=== PATIENT | female | born 1955 | race Caucasian/White ===

== ENCOUNTER 2023-08-02 09:50 | Emergency (ER) | payer MEDICARE, BC ==
[~2023-08-02] VITALS: Ht 160 cm; Wt 64.2 kg
[2023-08-02 11:04] LABS: Basophils # (auto) 0.1 10 ^3/uL (0-0.2); Basophils % (auto) 0.3 % (0.0-2.0); Eosinophils # (auto) 0 10 ^3/uL (0-0.8); Hematocrit 41.4 % (36.0-46.0); Hemoglobin 13.6 g/dL (12.2-16.2); Lymphocytes # (auto) 0.7 10 ^3/uL (0.4-5.4); Lymphocytes % (auto) 4.1 % (10.0-50.0); Mean Corpuscular Hemoglobin 27.9 pg (28.0-32.0); Mean Corpuscular Hgb Conc. 32.7 g/dL (32.0-36.0); Mean Corpuscular Volume 85.2 fL (80.0-100.0); Monocytes # (auto) 1.1 10 ^3/uL (0-1.3); Monocytes % (auto) 6.4 % (0.0-12.0); Neutrophils % (auto) 89.2 % (37.0-80.0); Red Blood Cells 4.86 10^6/uL (4.0-5.20); White Blood Cell 17.9 10^3/uL (4.4-10.8)
[2023-08-02 11:11] LABS: Urine Bacteria FEW /hpf (None Seen); Urine Blood Negative /uL (Negative); Urine Clarity HAZY (Clear); Urine Color Yellow (Yellow); Urine Mucus FEW (None Seen); Urine Protein, UAD 1+ (Negative); Urine Specific Gravity 1.023 (1.001-1.035); Urine Urobilinogen Normal (Negative); Urine WBC 36 /hpf (0 - 5)
[2023-08-02] MEDS ORDERED: SODIUM CHLORIDE 0.9% 1,000 ML IV ONE ×2 (11:15→13:00)
[2023-08-02] MEDS ORDERED: metroNIDAZOLE 500MG/100ML 100 ML IV ONE (11:15)
[2023-08-02] MEDS ORDERED: ONDANSETRON HCL 4 MG/2 ML VIAL IV ONE (11:15)
[2023-08-02 11:30] LABS: Alanine Aminotransferase 133 U/L (7-40); Albumin 4.3 g/dL (3.2-4.8); Alkaline Phosphatase 223 U/L (46-116); Anion Gap 8 (5-15); Aspartate Aminotransferase 92 U/L (13-40); Blood Urea Nitrogen 15 mg/dL (9-23); Calcium 8.8 mg/dL (8.7-10.4); Carbon Dioxide 25 mmol/L (20-30); Chloride 102 mmol/L (98-107); Glucose 111 mg/dL (74-106); Lipase 30 U/L (12-53); Potassium 3.9 mmol/L (3.5-5.1); Sodium 135 mmol/L (136-145)
[2023-08-02 11:31] LABS: Bilirubin, Total 1.1 mg/dL (0.2-1.0); Total Protein 7.5 g/dL (5.7-8.2)
[2023-08-02] MEDS ORDERED: PIPERACILLIN-TAZOB 3.375GM 100 ML IV ONE (12:30)
[2023-08-02 12:45] VITALS: PULSE 82; RESP 18; O2SAT 96
[2023-08-02 16:00] VITALS: BP 126/58; PULSE 68; RESP 16; TEMP 98.2; O2SAT 94
== END 2023-08-02 18:11 | disposition left against medical advice (07) ==
LOC: ER 09:50
DX: A41.9 Sepsis, unspecified organism (principal); N39.0 Urinary tract infection, site not specified; L02.211 Cutaneous abscess of abdominal wall; R50.9 Fever, unspecified; R19.7 Diarrhea, unspecified; R07.89 Other chest pain
CPT/HCPCS: 36415; 71045; 74176; 80053; 81001; 83605; 83690; 84484; 85025; 85048; 87040; 87045; 87427; 87493; 93005; 96361; 96365; 96367; 96375; 99285; J2405; J2543; J3490; J7030

== ENCOUNTER 2024-07-05 14:05 | Inpatient (IN) | payer MEDICARE, BC ==
[~2024-07-05] VITALS: Ht 157.5 cm; Wt 66.1 kg
--- NOTE | 2024-07-05 14:21 | ED.PDOC ---
History of Present Illness HPI Comments 68Y F with PMHx CA, tubal ligation, , and hysterectomy presents to ED via EMS for chief complaint rt hip pain s/p fall. Pt states she was walking down the hallway when she suddenly fell and landed on the tile floor. Pt denies hitting her head. No LOC. Pt has rt hip pain at a level of 8/10. Pt denies chest pain, SOB, chills, and n/v/d. EMS provided pt with Ketamine 21 and Fentanyl. Pt underwent L-spine fusion for scoliosis and stenosis last year. No known allergies. Time Seen by MD: 14:09 Primary Care Provider: BELLA Reviewed Notes: Medications, Allergies Allergies: Coded Allergies: Cephalexin (Verified Allergy, Unknown, 07/05/24) Information Source: Patient, Emergency Med Personnel, Spouse Mode of Arrival: EMS Severity: Moderate Timing: Hours Duration: Since onset Prehospital treatment: Pain Meds Past Medical History PAST MEDICAL HISTORY: Cancer Surgical History: Denies all surgeries HISTORY FACULTY MEMBER History: No Pertinent HISTORY FACULTY MEMBER History Family History Family History: Family hx of DM, Family hx of HTN Social History Smoker: Non-Smoker Alcohol: Denies ETOH Use Drugs: Denies Drug Use Lives In: Home Constitutional: denies: chills, diaphoresis, fatigue, fever, malaise, sweats, weakness, others EENTM: denies: blurred vision, double vision, ear bleeding, ear discharge, ear drainage, ear pain, ear ringing, eye pain, eye redness, hearing loss, mouth pain, mouth swelling, nasal discharge, nose bleeding, nose congestion, nose pain, photophobia, tearing, throat pain, throat swelling, voice changes, others Respiratory: denies: cough, hemoptysis, orthopnea, SOB at rest, shortness of breath, SOB with excertion, stridor, wheezing, others Cardiovascular: denies: chest pain, dizzy spells, diaphoresis, Dyspnea on exertion, edema, irregular heart beat, left arm pain, lightheadedness, palpitations, PND, syncope, others Gastrointestinal: denies: abdomen distended, abdominal pain, blood streaked bowels, constipated, diarrhea, dysphagia, difficulty swallowing, hematemesis, melena, nausea, poor appetite, poor fluid intake, rectal bleeding, rectal pain, vomiting, others Genitourinary: denies: abnormal vagina bleeding, burning, dyspareunia, dysuria, flank pain, frequency, hematuria, incontinence, pain, , vagina discharge, urgency, others Neurological: denies: dizziness, fainting, headache, left sided numbness, left sided weakness, numbness, paresthesia, pre-existing deficit, right sided numbness, right sided weakness, seizure, speech problems, tingling, tremors, weakness, others Musculoskeletal: reports: joint pain (rt hip); denies: back pain, gout, joint swelling, muscle pain, muscle stiffness, neck pain, others Integumetry: denies: bruises, change in color, change in hair/nails, dryness, laceration, lesions, lumps, rash, wounds, others Allergic/Immunocompromised: denies: Difficulty Healing, Frequent Infections, Hives, Itching, others Hematologic/Lymphatic: denies: anemia, blood clots, easy bleeding, easy bruising, swollen glands, others Endocrine: denies: excessive hunger, excessive sweating, excessive thirst, excessive urination, flushing, intolerance to cold, intolerance to heat, unexplained weight gain, unexplained weight loss, others Psychiatric: denies: anxiety, bipolar disorder, depression, hopeless, panic disorder, schizophrenia, sleepless, suicidal, others All Other Systems: Reviewed and Negative Physical Exam General Appearance: No Apparent Distress, Normal HEENT: Normal ENT Inspection, Pharynx Normal, TMs Normal Neck: Full Range of Motion, Non-Tender, Normal, Normal Inspection Respiratory: Chest Non-Tender, Lungs Clear, No Accessory Muscle Use, No Respiratory Distress, Normal Breath Sounds Cardiovascular: No Edema, No JVD, No Murmur, No Gallop, Normal Peripheral Pulses, Regular Rate/Rhythm Breast Exam: Deferred Gastrointestinal: No Organomegaly, Non Tender, No Pulsatile Mass, Normal Bowel Sounds, Soft Genitalia: Deferred Pelvic: Deferred Rectal: Deferred Extremities: No calf tenderness, Normal capillary refill, Normal inspection, Normal range of motion, Non-tender, No pedal edema Musculoskeletal : Location: Right Extremity Location: Hip Apperance: Tenderness Neurologic: Alert, offset press operator II-XII nml as Tested, No Motor Deficits, Normal Affect, Normal Mood, No Sensory Deficits Cerebellar Function: NOT DONE Reflexes: NOT DONE Skin: Dry, Normal Color, Warm Lymphatic: No Adenopathy Was a procedure done? Was a procedure done?: No Differential Dx Considerations may include: Right hip strain, right femoral fracture X-Ray, Labs, Meds, VS Vital Signs Date Time Temp Pulse Resp B/P (MAP) Pulse Ox O2 Delivery O2 Flow Rate FiO2 07/05/24 16:00 113 15 152/73 (99) 99 07/05/24 15:17 67 17 158/79 07/05/24 14:58 58 15 99 Room Air* 0 21 07/05/24 14:47 58 15 162/81 07/05/24 14:30 97.6 58 15 162/81 (108) 99 97.6 07/05/24 14:10 98.8 85 18 140/78 (98) 100 Lab Test 07/05/24 14:26 Range/Units White Blood Count 7.8 4.4-10.8 10^3/uL Red Blood Count 5.02 4.0-5.20 10^6/uL Hemoglobin 15.5 12.2-16.2 g/dL Hematocrit 45.1 36.0-46.0 % Mean Corpuscular Volume 90.0 80.0-100.0 fL Mean Corpuscular Hemoglobin 30.9 28.0-32.0 pg Mean Corpuscular Hemoglobin Concent 34.3 32.0-36.0 g/dL Red Cell Distribution Width 13.6 11.8-14.3 % Platelet Count 252 140-450 10^3/uL Mean Platelet Volume 7.4 6.9-10.8 fL Neutrophils (%) (Auto) 78.0 37.0-80.0 % Lymphocytes (%) (Auto) 12.5 10.0-50.0 % Monocytes (%) (Auto) 6.1 0.0-12.0 % Eosinophils (%) (Auto) 2.3 0.0-7.0 % Basophils (%) (Auto) 1.1 0.0-2.0 % Neutrophils # (Auto) 6.1 1.6-8.6 10 ^3/uL Lymphocytes # (Auto) 1.0 0.4-5.4 10 ^3/uL Monocytes # (Auto) 0.5 0-1.3 10 ^3/uL Eosinophils # (Auto) 0.2 0-0.8 10 ^3/uL Basophils # (Auto) 0.1 0-0.2 10 ^3/uL Nucleated Red Blood Cells 0.0 % Prothrombin Time 10.3 9.3-11.8 sec Prothrombin Time INR 0.97 0.9-1.15 Sodium Level 142 136-145 mmol/L Potassium Level 4.3 3.5-5.1 mmol/L Chloride Level 107 98-107 mmol/L Carbon Dioxide Level 23 20-31 mmol/L Anion Gap 12 5-15 Blood Urea Nitrogen 15 9-23 mg/dL Creatinine 0.72 0.550-1.02 mg/dL Glomerular Filtration Rate Calc 90 >90 mL/min BUN/Creatinine Ratio 20.8 H 10.0-20.0 Serum Glucose 96 74-106 mg/dL Calcium Level 9.9 8.7-10.4 mg/dL Current Medications Medications (Trade) Dose Ordered Sig/Juan C Route Start Time Stop Time Status Last Admin Sodium Chloride 1,000 ml @ 1,000 mls/hr Q1H ONCE IV 07/05/24 14:15 07/05/24 15:14 DC 07/05/24 14:48 Ondansetron HCl (Zofran) 4 mg ONCE ONCE IV 07/05/24 14:15 07/05/24 14:16 DC 07/05/24 14:47 Morphine Sulfate 4 mg ONCE ONCE IV 07/05/24 14:15 07/05/24 14:16 DC 07/05/24 14:47 [place] [id number] Ph: [phone] DIAGNOSTIC IMAGING Diagnostic Imaging Report : [id number] Signed PATIENT: MARYANA HENNESSY ACCT: [id number] UNIT: [id number] : 1955 LOC: ER ROOM / BED: / AGE / SEX: 68 / F ADM STATUS: REG ER SERVICE 1412 ORDERING PHYSICIAN: DERIAN ANDRADE MD PROCEDURE(s): CXRP - CHEST PORTABLE REASON: fall ORDER NUMBER(s): [id number], ACCESSION NUMBER(s): [id number] CHEST RADIOGRAPH Indication: fall Technique: Single frontal view of the chest was obtained Comparison: XY CHEST PORTABLE on DOS: 08/02/23 FINDINGS: Lines and Tubes: None Lungs: No focal consolidation. Pleura: No effusion. No pneumothorax. Cardiomediastinal contours: Unremarkable Bones: No acute osseous abnormality. Lumbar fixation hardware is visualized. IMPRESSION: No acute cardiopulmonary disease. ATED BY: LEA SIMS DO DICTATED DATE/TIME: 07/05/241609 SIGNED BY: LEA SIMS DO SIGNED DATE/TIME: 07/05/241609 CC: [place] [id number] Ph: [phone] DIAGNOSTIC IMAGING Diagnostic Imaging Report : [id number] Signed PATIENT: MARYANA HENNESSY ACCT: [id number] UNIT: [id number] : 1955 LOC: ER ROOM / BED: / AGE / SEX: 68 / F ADM STATUS: REG ER SERVICE 11 ORDERING PHYSICIAN: DERIAN ANDRADE MD PROCEDURE(s): LUMB2 - LUMBAR SPINE 3 VIEW REASON: fall ORDER NUMBER(s): [id number], ACCESSION NUMBER(s): [id number] CLINICAL INDICATION: fall TECHNIQUE: 4 radiographic views of the lumbar spine were obtained. Comparison: None FINDINGS/IMPRESSION: Moderate levoconvex curvature of the lumbar spine. Postsurgical changes of L4 to S1 spinal fusion. The hardware appears intact. There is multilevel severe degenerative changes of the lumbar spine. There appears to be minimal loss of vertebral body height of T11-L1 of unknown chronicity. If symptoms persist, CT/ MRI should be considered for further evaluation. ATED BY: LEA SIMS DO DICTATED DATE/TIME: 07/05/241612 SIGNED BY: LEA SIMS DO SIGNED DATE/TIME: 07/05/241612 CC: [place] [id number] Ph: [phone] DIAGNOSTIC IMAGING Diagnostic Imaging Report : [id number] Signed PATIENT: MARYANA HENNESSY ACCT: [id number] UNIT: [id number] : 1955 LOC: ER ROOM / BED: / AGE / SEX: 68 / F ADM STATUS: REG ER SERVICE 1412 ORDERING PHYSICIAN: DERIAN ANDRADE MD PROCEDURE(s): RHIP - R HIP COMPLETE XRAY REASON: fall ORDER NUMBER(s): [id number], ACCESSION NUMBER(s): [id number] CLINICAL INFORMATION: 68 years old, Female; fall injury. TECHNIQUE: 3 views of the pelvis and right hip were obtained. COMPARISON: None FINDINGS: Deformity of the right femoral head / neck junction, suspected acute or subacute subcapital femoral neck fracture. Moderate joint space narrowing in both hips with mild subchondral sclerosis. Mild soft tissue swelling adjacent to the right hip. IMPRESSION: Deformity of the right femoral head / neck junction, suspected acute subcapital femoral neck fracture. Correlate with clinical findings. ATED BY: GONZALO MELTON DO DICTATED DATE/TIME: 07/05/241619 SIGNED BY: GONZALO MELTON DO SIGNED DATE/TIME: 07/05/24 162 CC: [place] [id number] Ph: [phone] DIAGNOSTIC IMAGING Diagnostic Imaging Report : [id number] Signed PATIENT: MARYANA HENNESSY ACCT: [id number] UNIT: [id number] : 1955 LOC: ER ROOM / BED: / AGE / SEX: 68 / F ADM STATUS: REG ER SERVICE 1529 ORDERING PHYSICIAN: SHANNON ISAAC MD PROCEDURE(s): PL2CT - PELVIS WO CONTRAST REASON: pain r/o hip fracture ORDER NUMBER(s): [id number], ACCESSION NUMBER(s): [id number] Exam: CT PELVIS WO CONTRAST History: pain r/o hip fracture Comparison Study: None available at time of dictation. Technique: Multidetector CT of the pelvis was performed from iliac crests to pubic symphysis after the administration of intravenous contrast was administered during this examination. Portal venous imaging was obtained. Axial, coronal and sagittal multiplanar reformats were performed by the technologist on a separate workstation. Radiation Dose : CT Dose: CTDI volume is 14.82 mGy. Dose-length product is 465.22 mGy*cm Findings: Visualized bowel: No bowel wall thickening or dilatation. Ascites: Absent Lymphadenopathy: No pelvic or mesenteric lymphadenopathy. Vasculature: The visualized abdominal aorta is normal in size and caliber. Abdominal and pelvic vessels demonstrate normal enhancement. Pelvic Organs: Unremarkable Musculoskeletal: No acute osseous abnormality. Pedicle screws and rods in place at L4-5 and L5-S1. Minimally displaced fracture subcapital of the right femur Bladder: Unremarkable Soft tissues: Unremarkable. IMPRESSION: 1. Findings worrisome for a minimally displaced subcapital fracture right femur. Correlate for patient's site of symptoms. All CT scans at this medical facility are performed using dose modulation techniques as appropriate to a performed exam including the following: Automated exposure control was utilized; adjustment of the MA and/or KV according to patient size; and use of iterative reconstruction technique. ATED BY: JOSH TURCIOS Jr., DO DICTATED DATE/TIME: 07/05/241644 SIGNED BY: JOSH TURCIOS Jr., DO SIGNED DATE/TIME: 07/05/241644 CC: Time of 1ST Reevaluation: 14:39 Reevaluation 1ST: Unchanged Patient Education/Counseling: Diagnosis, Treatment Family Education/Counseling: Diagnosis, Treatment Additional Information I reviewed the following notes from the pt's past medical encounters: [facility] ER 08/02/2023 dx diarrhea, [facility] discharge 06/10/2012 dx r/o meningitis. The following tests were ordered, and results were reviewed by me: CBC, BMP, PT/PTT, CXR, rt hip x-ray, l-spine x-ray Additional information was gathered from interviewing the following independent historians: Spouse, EMS I reviewed and agreed with the following test results read by other providers: C XR, rt hip x-ray, l-spine x-ray I discussed treatments and results with medical personnel and spouse. Departure 1 Departure Time of Disposition: 17:21 (Patient has a right femur fracture. We will admit patient for further workup and expert consultation) Impression: Primary Impression: Right femoral fracture Qualified Codes: S72.061A - Displaced articular fracture of head of right femur, initial encounter for closed fracture Additional Impression: Fall Qualified Codes: W19.XXXA - Unspecified fall, initial encounter Disposition: ADMITTED INPATIENT Admit to: Med Surg Condition: Serious Critical Care Note Critical Care Time?: Yes Critical care comment: Severe hip pain Authorized and Performed by: Derian Andrade MD Total critical care time: Approximately 31 minutes Due to a high probability of clinically significant, life threatening deterio ration, the patient required my highest level of preparedness to intervene emergently and I personally spent this critical care time directly and personally managing the patient. This critical care time included obtaining a history; examining the patient; pulse oximetry; ordering and review of studies; arranging urgent treatment with development of a management plan; evaluation of patient's response to treatment; frequent reassessment; and, discussions with other providers. This critical care time was performed to assess and manage the high probability of imminent, life-threatening deterioration that could result in multi-organ failure. It was exclusive of separately billable procedures and treating other patients and teaching time. Please see my other sections and the rest of the note for further information on patient assessment and treatment. Stability Stability form required: No Heart Score Heart Score: Heart Score Response (Comments) Value History N/A 0 EKG N/A 0 Age N/A 0 Risk Factors N/A 0 Troponin N/A 0 Total 0 I personally scribed for DERIAN ANDRADE MD (SONIYA) on 07/05/24 at 14:21. Electronically submitted by Laura Ren ([email or web address]). I personally scribed for DERIAN ANDRADE MD (SONIYA) on 07/05/24 at 16:34. Electronically submitted by Laura Ren ([email or web address]). I personally scribed for DERIAN ANDRADE MD (SONIYA) on 07/05/24 at 16:50. Electronically submitted by Laura Ren ([email or web address]). DERIAN ANDRADE MD Jul 05, 2024 14:21
[2024-07-05 14:40] LABS: Basophils # (auto) 0.1 10 ^3/uL (0-0.2); Basophils % (auto) 1.1 % (0.0-2.0); Eosinophils # (auto) 0.2 10 ^3/uL (0-0.8); Eosinophils % (auto) 2.3 % (0.0-7.0); Hematocrit 45.1 % (36.0-46.0); Hemoglobin 15.5 g/dL (12.2-16.2); Lymphocytes % (auto) 12.5 % (10.0-50.0); Mean Corpuscular Hemoglobin 30.9 pg (28.0-32.0); Mean Corpuscular Hgb Conc. 34.3 g/dL (32.0-36.0); Monocytes # (auto) 0.5 10 ^3/uL (0-1.3); Monocytes % (auto) 6.1 % (0.0-12.0); Neutrophils # (auto) 6.1 10 ^3/uL (1.6-8.6); Platelet Count (auto) 252 10^3/uL (140-450); Red Blood Cells 5.02 10^6/uL (4.0-5.20); Red Cell Distribution Width 13.6 % (11.8-14.3); White Blood Cell 7.8 10^3/uL (4.4-10.8)
[2024-07-05] MEDS: ONDANSETRON HCL 4 MG/2 ML VIAL IV ONE ×2 (14:47→17:39)
[2024-07-05] MEDS: MORPHINE SULFATE 4 MG/ML SYR/VIAL IV ONE ×2 (14:47→17:38)
[2024-07-05] MEDS: SODIUM CHLORIDE 0.9% 1,000 ML IV ONE (14:48)
[2024-07-05 14:53] LABS: Potassium 4.3 mmol/L (3.5-5.1); Sodium 142 mmol/L (136-145)
[2024-07-05 14:54] LABS: Anion Gap 12 (5-15); Calcium 9.9 mg/dL (8.7-10.4); Carbon Dioxide 23 mmol/L (20-31); INR 0.97 (0.9-1.15); Prothrombin Time 10.3 sec (9.3-11.8)
[2024-07-05 14:58] VITALS: PULSE 58; RESP 15; O2SAT 99
[2024-07-05 14:59] LABS: BUN/Creatinine Ratio 20.8 (10.0-20.0); Blood Urea Nitrogen 15 mg/dL (9-23); Glucose 96 mg/dL (74-106)
[2024-07-05 15:06] LABS: Chloride 107 mmol/L (98-107)
--- NOTE | 2024-07-05 16:12 | DVH ---
CHEST RADIOGRAPH Indication: fall Technique: Single frontal view of the chest was obtained Comparison: XY CHEST PORTABLE on DOS: 08/02/23 FINDINGS: Lines and Tubes: None Lungs: No focal consolidation. Pleura: No effusion. No pneumothorax. Cardiomediastinal contours: Unremarkable Bones: No acute osseous abnormality. Lumbar fixation hardware is visualized. IMPRESSION: No acute cardiopulmonary disease.
--- NOTE | 2024-07-05 16:16 | DVH ---
CLINICAL INDICATION: fall TECHNIQUE: 4 radiographic views of the lumbar spine were obtained. Comparison: None FINDINGS/IMPRESSION: Moderate levoconvex curvature of the lumbar spine. Postsurgical changes of L4 to S1 spinal fusion. T he hardware appears intact. There is multilevel severe degenerative changes of the lumbar spine. Ther e appears to be minimal loss of vertebral body height of T11-L1 of unknown chronicity. If symptoms pe rsist, CT/ MRI should be considered for further evaluation.
--- NOTE | 2024-07-05 16:23 | DVH ---
CLINICAL INFORMATION: 68 years old, Female; fall injury. TECHNIQUE: 3 views of the pelvis and right hip were obtained. COMPARISON: None FINDINGS: Deformity of the right femoral head / neck junction, suspected acute or subacute subcapital femoral neck fracture. Moderate joint space narrowing in both hips with mild subchondral sclerosis. Mild soft tissue swelling adjacent to the right hip. IMPRESSION: Deformity of the right femoral head / neck junction, suspected acute subcapital femoral neck fracture . Correlate with clinical findings.
--- NOTE | 2024-07-05 16:47 | DVH ---
Exam: CT PELVIS WO CONTRAST History: pain r/o hip fracture Comparison Study: None available at time of dictation. Technique: Multidetector CT of the pelvis was performed from iliac crests to pubic symphysis after th e administration of intravenous contrast was administered during this examination. Portal venous imag ing was obtained. Axial, coronal and sagittal multiplanar reformats were performed by the [employer] t on a separate workstation. Radiation Dose : CT Dose: CTDI volume is 14.82 mGy. Dose-length product is 465.22 mGy*cm Findings: Visualized bowel: No bowel wall thickening or dilatation. Ascites: Absent Lymphadenopathy: No pelvic or mesenteric lymphadenopathy. Vasculature: The visualized abdominal aorta is normal in size and caliber. Abdominal and pelvic vesse ls demonstrate normal enhancement. Pelvic Organs: Unremarkable Musculoskeletal: No acute osseous abnormality. Pedicle screws and rods in place at L4-5 and L5-S1. Mi nimally displaced fracture subcapital of the right femur Bladder: Unremarkable Soft tissues: Unremarkable. IMPRESSION: 1. Findings worrisome for a minimally displaced subcapital fracture right femur. Correlate for patie nt's site of symptoms. All CT scans at this medical facility are performed using dose modulation techniques as appropriate t o a performed exam including the following: Automated exposure control was utilized; adjustment of th e MA and/or KV according to patient size; and use of iterative reconstruction technique.
--- NOTE | 2024-07-05 17:46 | DVHINCON2 ---
Date of service: Jul 05, [address] Bar Reason for Consultation right hip pain History of Present Illness 68 yo female with mechanical GLF at home today brought to ER by ambulance. Severe right hip pain and inability to bear weight. Normally independent in all ADL's/ambulation without assistive devices. She denies any cardiac or neuro symptoms associated with fall. at bedside. Patient and were long standing practicing physicians in the community. She denies any LOC or other injuries. Past Medical History Med illnesses: arthritis. Denies CAD, HTN, HLD, diabetes, asthma. 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 Good functional exercise capacity. PSH: lumbar fusion, drainage for seroma/abscess, breast surgery for CA. Social History No tobacco, etoh or drugs. Anesthesiologist retired Allergies: Coded Allergies: Cephalexin (Verified Allergy, Unknown, 07/05/24) Current Medications see med rec Review of Systems neg on 10 point review except as above Vital Signs Vital Signs Date Time Temp Pulse Resp B/P (MAP) Pulse Ox O2 Delivery O2 Flow Rate FiO2 07/05/24 16:00 113 15 152/73 (99) 99 07/05/24 14:58 Room Air* 0 21 07/05/24 14:30 97.6 97.6 Physical Exam wdwn female in NAD alert and oriented x4 No lowere extremity deformity pain right hip with any PROM RLE distal nv intact xrays and ct reveal right hip valgus impacted femoral neck fracture Labs/Diagnostic Data Labs Test 07/05/24 14:26 Range/Units White Blood Count 7.8 4.4-10.8 10^3/uL Red Blood Count 5.02 4.0-5.20 10^6/uL Hemoglobin 15.5 12.2-16.2 g/dL Hematocrit 45.1 36.0-46.0 % Mean Corpuscular Volume 90.0 80.0-100.0 fL Mean Corpuscular Hemoglobin 30.9 28.0-32.0 pg Mean Corpuscular Hemoglobin Concent 34.3 32.0-36.0 g/dL Red Cell Distribution Width 13.6 11.8-14.3 % Platelet Count 252 140-450 10^3/uL Mean Platelet Volume 7.4 6.9-10.8 fL Neutrophils (%) (Auto) 78.0 37.0-80.0 % Lymphocytes (%) (Auto) 12.5 10.0-50.0 % Monocytes (%) (Auto) 6.1 0.0-12.0 % Eosinophils (%) (Auto) 2.3 0.0-7.0 % Basophils (%) (Auto) 1.1 0.0-2.0 % Neutrophils # (Auto) 6.1 1.6-8.6 10 ^3/uL Lymphocytes # (Auto) 1.0 0.4-5.4 10 ^3/uL Monocytes # (Auto) 0.5 0-1.3 10 ^3/uL Eosinophils # (Auto) 0.2 0-0.8 10 ^3/uL Basophils # (Auto) 0.1 0-0.2 10 ^3/uL Nucleated Red Blood Cells 0.0 % Prothrombin Time 10.3 9.3-11.8 sec Prothrombin Time INR 0.97 0.9-1.15 Sodium Level 142 136-145 mmol/L Potassium Level 4.3 3.5-5.1 mmol/L Chloride Level 107 98-107 mmol/L Carbon Dioxide Level 23 20-31 mmol/L Anion Gap 12 5-15 Blood Urea Nitrogen 15 9-23 mg/dL Creatinine 0.72 0.550-1.02 mg/dL Glomerular Filtration Rate Calc 90 >90 mL/min BUN/Creatinine Ratio 20.8 H 10.0-20.0 Serum Glucose 96 74-106 mg/dL Calcium Level 9.9 8.7-10.4 mg/dL Assessment acute impacted right femoral neck fracture Plan/Recommendation Plan is for in situ hip pinning. I explained diagnosis, prognosis, procedure and risks. 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 Vanco preop. NPO post midnight Plan discussed with: Patient, Spouse SHANNON ISAAC MD Jul 05, 2024 17:46
[2024-07-05] MEDS ORDERED: HYDROmorphone HCL 2 MG/ML VL/or syr IV PRN (18:00)
[2024-07-05] MEDS ORDERED: ONDANSETRON HCL 4 MG/2 ML VIAL IV PRN ×2 (18:00→19:30)
[2024-07-05] MEDS ORDERED: MAALOX PLUS or MAALOX 30 ML PO PRN (19:30)
[2024-07-05] MEDS ORDERED: ACETAMINOPHEN 325 MG TAB PO PRN (19:30)
[2024-07-05] MEDS ORDERED: TEMAZEPAM 15 MG CAP PO PRN (19:30)
[2024-07-05] MEDS ORDERED: HYDROcodone-ACET 5/325MG TAB PO PRN (19:30)
[2024-07-05] MEDS ORDERED: LORazepam 0.5 MG TAB PO PRN (19:30)
--- NOTE | 2024-07-05 19:37 | DVHHP2 ---
History of Present Illness Reason for Visit: Hip pain History of Present Illness 68-year-old female with a past medical history of cancer history of tubal ligation hysterectomy comes to the ED with complaints of hip pain after the fall patient had a mechanical fall while walking down the hallway slip and fall leading did with severe pain patient was given pain medication for pain states that she is having severe pain in the right hip as well as in the left side as well patient does have a history of spinal fusion scoliosis as well and underwent a surgery last year for fusion. Review of Systems Constitutional: Yes: Weakness; No: Fever, Chills, Sweats, Malaise, Other Eyes: No: Pain, Vision change, Conjunctivae inflammation, Eyelid inflammation, Other, Redness ENT: No: Ear pain, Ear discharge, Nose pain, Nose discharge, Nose congestion, Mouth pain, Mouth swelling, Throat pain, Throat swelling, Other Respiratory: No: Cough, Dry, Shortness of breath, SOB with excertion, Wheezing, Hemoptysis, Pleuritic Pain, Sputum, Wheezing, Other Cardiovascular: No: Chest Pain, Palpitations, Orthopnea, Paroxysmal Noc. Dyspnea, Edema, Lt Headedness, Other Gastrointestinal: No: Nausea, Vomiting, Abdominal Pain, Diarrhea, Constipation, Melena, Hematochezia, Other Genitourinary: No Dysuria, No Frequency, No Incontinence, No Hematuria, No Retention, No Other Musculoskeletal: leg pain; No: other, neck pain, shoulder pain, arm pain, back pain, hand pain, foot pain Skin: No: Rash, Lesions, Jaundice, Bruising, Other Neurological: Weakness, Incoordination; No: Numbness, Change in speech, Confusion, Seizures, Other Allergies: Coded Allergies: Cephalexin (Verified Allergy, Unknown, 07/05/24) Medications Current Medications Medications Dose Ordered Sig/Juan C Route Start Time Stop Time Status Last Admin Dose Admin Hydromorphone HCl 0.5 mg Q4HPRN PRN IV 07/05/24 18:00 Ondansetron HCl 4 mg Q4HPRN PRN IV 07/05/24 18:00 Exam Vital Signs Vital Signs Date Time Temp Pulse Resp B/P (MAP) Pulse Ox O2 Delivery O2 Flow Rate FiO2 07/05/24 18:08 56 15 153/65 07/05/24 18:00 99 07/05/24 14:58 Room Air* 0 21 07/05/24 14:30 97.6 97.6 General Appearance: Alert, Oriented X3, moderate distress HEENT: Atraumatic, PERRLA Respiratory: Clear to auscultation, Normal air movement Cardiovascular: Regular rate, Normal S1, Normal S2 Abdominal: Normal bowel sounds, Soft Extremities: No clubbing, No cyanosis, No edema Skin: No rashes, No breakdown Neuro: Normal gait (Inability to ambulate due to fracture), Normal speech Labs/Xrays Labs Test 07/05/24 14:26 Range/Units White Blood Count 7.8 4.4-10.8 10^3/uL Red Blood Count 5.02 4.0-5.20 10^6/uL Hemoglobin 15.5 12.2-16.2 g/dL Hematocrit 45.1 36.0-46.0 % Mean Corpuscular Volume 90.0 80.0-100.0 fL Mean Corpuscular Hemoglobin 30.9 28.0-32.0 pg Mean Corpuscular Hemoglobin Concent 34.3 32.0-36.0 g/dL Red Cell Distribution Width 13.6 11.8-14.3 % Platelet Count 252 140-450 10^3/uL Mean Platelet Volume 7.4 6.9-10.8 fL Neutrophils (%) (Auto) 78.0 37.0-80.0 % Lymphocytes (%) (Auto) 12.5 10.0-50.0 % Monocytes (%) (Auto) 6.1 0.0-12.0 % Eosinophils (%) (Auto) 2.3 0.0-7.0 % Basophils (%) (Auto) 1.1 0.0-2.0 % Neutrophils # (Auto) 6.1 1.6-8.6 10 ^3/uL Lymphocytes # (Auto) 1.0 0.4-5.4 10 ^3/uL Monocytes # (Auto) 0.5 0-1.3 10 ^3/uL Eosinophils # (Auto) 0.2 0-0.8 10 ^3/uL Basophils # (Auto) 0.1 0-0.2 10 ^3/uL Nucleated Red Blood Cells 0.0 % Prothrombin Time 10.3 9.3-11.8 sec Prothrombin Time INR 0.97 0.9-1.15 Sodium Level 142 136-145 mmol/L Potassium Level 4.3 3.5-5.1 mmol/L Chloride Level 107 98-107 mmol/L Carbon Dioxide Level 23 20-31 mmol/L Anion Gap 12 5-15 Blood Urea Nitrogen 15 9-23 mg/dL Creatinine 0.72 0.550-1.02 mg/dL Glomerular Filtration Rate Calc 90 >90 mL/min BUN/Creatinine Ratio 20.8 H 10.0-20.0 Serum Glucose 96 74-106 mg/dL Calcium Level 9.9 8.7-10.4 mg/dL Assessment/Plan Assessment/Plan Admit to [facility] Patient with a right femoral fracture Right femoral fracture with displacement status post mechanical fall IV hydration IV pain medication P.r.n. management Patient with orthopedic consultation completed Patient is already seen by ortho plan for pinning to be completed We will follow ortho recommendations and NPO after midnight as for ortho recommendations Plan discussed with: Patient My Orders Orders - GONSALO DAN MD Procedure Category Date Status Time Admit ADMIT 07/05/24 Transmitted 19:20 Code Status CODE 07/05/24 Transmitted 19:20 Vital Signs [facility] 07/05/24 In Process 19:20 Review Orders With [facility] 07/05/24 In Process Adm. 19:20 Npo (Nothing By DIET 07/06/24 Transmitted Mouth) Diet Breakfast Sodium Chloride 0.9% [facility] 07/05/24 Logged 19:30 Lorazepam Tablet [facility] 07/05/24 Logged (Ativan Tablet) 19:30 Alum & Mag PH[facility] 07/05/24 Logged Hydrox-Simethicone 19:30 Docusate Sodium PH[facility] 07/05/24 Logged Capsule (Colace 19:30 Acetaminophen Tablet [facility] 07/05/24 Logged (Tylenol Tablet) 19:30 Temazepam (Restoril) [facility] 07/05/24 Logged 19:30 Notify Of Changes [facility] 07/05/24 In Process From Base 19:20 Advance Directive [facility] 07/05/24 In Process 19:20 Basic Metabolic Panel LAB 07/06/24 Verified 04:00 Urinalysis LAB 07/05/24 Transmitted 19:20 Complete Blood Count LAB 07/06/24 Verified 04:00 Patient Condition ORDERS 07/05/24 Transmitted 19:[address] [facility] 07/05/24 In Process 19:20 Hydrocodone-Acet PHA 11/30/24 Logged 5/325mg Tab (Colome 19:30 Ondansetron Hcl PHA 07/05/24 Logged (Zofran) 19:30 Morphine Sulfate PHA 07/05/24 Logged Injection 19:30 Fisher Hoop Net For REGINALD 07/05/24 In Process 24 Hours 19:20 Oxygen By Nasal RT 07/05/24 Transmitted Cannula 19:20 Problem List: (1) Right femoral fracture (2) Fall Date of Service: Jul 05, 2024 Billing Provider: GONSALO DAN MD Common Visit Codes: [id number] INP/OBS CARE (HIGH) GONSALO DAN MD Jul 05, 2024 19:37
[2024-07-05] MEDS: SODIUM CHLORIDE 0.9% 1,000 ML IV SCH (19:59)
[2024-07-05 20:00] VITALS: PULSE 67; RESP 12; O2SAT 97
--- NOTE | 2024-07-05 20:20 | ECG ---
[facility] Test Date: 2024-07-05 Test Time: 20:18:31 Pat Name: MARYANA HENNESSY Department: DC Room: 0231 Gender: F Manager Business Information: KHALIDA : 1955 Requested By: GONSALO DAN Order Number: [id number] Reading MD: Getachew Quezada Measurements Intervals [place] Rate: 58 P: 62 MS: 139 QRS: 68 QRSD: 90 T: 58 QT: 425 QTc: 418 Interpretive Statements Sinus rhythm Borderline T abnormalities, lateral leads Electronically Signed On 07-09-2024 16:10:40 PST by Getachew Quezada Please click the below link to view image of tracing.
[2024-07-05] MEDS: MORPHINE SULFATE INJ 2 MG/ml SYRG IV PRN (23:11)
[2024-07-06] VITALS (12 sets, daily range): BP systolic 99–137; BP diastolic 63–72; PULSE 57–84; RESP 10–96; TEMP 97.4–98.8; O2SAT 92–99
[2024-07-06 04:04] LABS: Urine Bacteria None Seen /hpf (None Seen)
[2024-07-06 04:18] LABS: Urine Blood Negative /uL (Negative); Urine Clarity Clear (Clear); Urine Color Light-Yellow (Yellow); Urine Protein, UAD Negative (Negative); Urine Specific Gravity 1.015 (1.001-1.035); Urine Urobilinogen Normal (Negative); Urine WBC 26 /hpf (0 - 5); Urine pH 5.5 (5.0-9.0)
[2024-07-06 05:53] LABS: Basophils # (auto) 0.1 10 ^3/uL (0-0.2); Basophils % (auto) 0.7 % (0.0-2.0); Eosinophils # (auto) 0.2 10 ^3/uL (0-0.8); Eosinophils % (auto) 2.5 % (0.0-7.0); Hemoglobin 14.2 g/dL (12.2-16.2); Lymphocytes # (auto) 0.6 10 ^3/uL (0.4-5.4); Lymphocytes % (auto) 7.3 % (10.0-50.0); Mean Corpuscular Hemoglobin 30.4 pg (28.0-32.0); Mean Corpuscular Hgb Conc. 33.8 g/dL (32.0-36.0); Mean Corpuscular Volume 89.9 fL (80.0-100.0); Monocytes # (auto) 0.5 10 ^3/uL (0-1.3); Monocytes % (auto) 5.9 % (0.0-12.0); Neutrophils % (auto) 83.6 % (37.0-80.0); Nucleated Red Blood Cells % 0.1 %; Platelet Count (auto) 232 10^3/uL (140-450); Red Blood Cells 4.67 10^6/uL (4.0-5.20); Red Cell Distribution Width 13.7 % (11.8-14.3); White Blood Cell 8.3 10^3/uL (4.4-10.8)
[2024-07-06 06:07] LABS: Partial Thromboplastin Time 28.1 SEC (24.5-34.5); Prothrombin Time 10.6 sec (9.3-11.8)
[2024-07-06 06:08] LABS: Anion Gap 8 (5-15); Carbon Dioxide 26 mmol/L (20-31); Chloride 107 mmol/L (98-107); Potassium 4.5 mmol/L (3.5-5.1); Sodium 141 mmol/L (136-145)
[2024-07-06 06:10] LABS: Calcium 9.2 mg/dL (8.7-10.4)
[2024-07-06] MEDS: VANCOMYCIN 1GM/250ML KIT 200 ML IV ONE (06:11)
[2024-07-06 06:14] LABS: Blood Urea Nitrogen 12 mg/dL (9-23)
[2024-07-06 06:15] LABS: Glucose 108 mg/dL (74-106)
[2024-07-06] MEDS: ROPIVACAINE 0.5% (5MG/ML) 20ML AMPULE IJ ONE (07:19)
[2024-07-06] MEDS ORDERED: MIDAZOLAM HCL 2MG/2ML 2ml VIAL (1mg/ml) ONE (07:20)
[2024-07-06] MEDS ORDERED: fentaNYL CITRATE 100 MCG/2 ML VL ONE (07:20)
[2024-07-06] MEDS ORDERED: HYDROmorphone HCL 2 MG/ML VL/or syr ONE (07:20)
[2024-07-06] MEDS ORDERED: ONDANSETRON HCL 4 MG/2 ML VIAL ONE (07:22)
[2024-07-06] MEDS ORDERED: KETOROLAC TROMETH 30 MG/ML 1ML VIAL ONE (07:22)
[2024-07-06] MEDS ORDERED: DexAMETHasone SOD PHOS 10MG/1ML VIAL INJ ONE (07:22)
[2024-07-06] MEDS ORDERED: PROPOFOL 10 MG/ML 20 ML IV ONE (07:22)
[2024-07-06] MEDS ORDERED: LIDOCAINE 2% (LOCAL ANESTH.) PF 5ml SDV ONE (07:22)
[2024-07-06] MEDS ORDERED: GLYCOPYRROLATE 0.2 MG/ML 1ML VIAL ONE (07:22)
[2024-07-06] MEDS ORDERED: HYDROmorphone HCL 2 MG/ML VL/or syr IV PRN (09:00)
[2024-07-06] MEDS: LACTATED RINGER'S 1,000 ML IV SCH (09:00)
[2024-07-06] MEDS ORDERED: HYDROcodone-ACET 10/325MG TAB PO PRN (09:00)
--- NOTE | 2024-07-06 09:04 | DVHOP2 ---
Operative Report - 2 Report Details Date: 07/06/24 Preop Diagnosis: Right hip valgus impacted femoral neck fracture Postop Diagnosis: Same Surgeon: Brian Isaac MD Anesthesiologist: Guru Anesthesia: General, Local Implant: ITS 6.5 mm cannulated screws x3 Consent: The patient was informed of the risks and benefits of the procedure. These include but are not limited to complications of anesthesia, postoperative infection, incomplete relief of symptoms, recurrence of symptoms, damage to blood vessels, nerves and tendons, deep venous thrombosis, pulmonary embolism and possible need for repeat surgery in the future. Complications: None Estimated Blood Loss: 20 cc Fluids: See anesthesia record Findings: Valgus impacted femoral neck fracture Indications for Surgery: Potentially unstable hip fracture Name of Procedure Performed Right hip pinning, C-arm fluoroscopy Procedure Details Procedure Details: Patient was brought to the operating room and placed on the [place] table in supine position after general anesthetic was given. Preoperatively patient had received IV vancomycin. Left lower extremity was placed in the well leg solis and right lower extremity in boot traction. C-arm was brought in to verify reduction and adequate positioning. The right hip and thigh were prepped and draped in sterile fashion. Surgical time-out was performed verifying patient, laterality, and procedure. I used C-arm to guide placement of a stab wound at the lateral thigh. I then passed a guidewire into the proximal femoral neck and head and adjusted its position based on AP and lateral views with C-arm. In similar fashion I placed two additional guidewires. Once I was satisfied with guidewire position I drilled the near cortices measured for length with depth gauge and applied three cannulated screws. Multiple C-arm views were obtained verifying maintenance of reduction and fracture position. Guidewires were removed. SubQ closed with 2-0 Vicryl skin with 3-0 nylon and wounds dressed sterilely. Patient tolerated the procedure well was brought to recovery room in stable condition. Condition Stable Disposition Still a Patient BRIAN ISAAC MD Jul 06, 2024 09:04
[2024-07-06] MEDS: ONDANSETRON HCL 4 MG/2 ML VIAL IV ONE (11:51)
[2024-07-06] MEDS: SODIUM CHLOR 0.9% PF (SALINE LOCK) 10ML VIAL/SYR IV SCH (11:51)
--- NOTE | 2024-07-06 12:06 | DVH ---
XY C ARM FLUOROSCOPY UP TO 60MIN, HISTORY: RT HIP PINNING TECHNICAL DATA: 5 intraoperative fluoroscopic spot images were obtained of the hip. COMPARISON: None FINDINGS/IMPRESSION: C-arm fluoroscopic images were obtained for anatomic localization. The images are of low resolution b ut demonstrate instrumentation over the hip . Total fluoroscopy time was 56 seconds. 8.81 mGy. Johan nowak see the operative report for further details.
--- NOTE | 2024-07-06 12:50 | DVHPN2 ---
Reviewed: Care Plan, H&P, Labs, Medications, Previous Orders, Radiology Changes from previous H/P or p: No Changes Eyes: No Pain, No Vision change, No Conjunctivae inflammation, No Eyelid inflammation, No Other, No Redness ENT: No Ear pain, No Ear discharge, No Nose pain, No Nose discharge, No Nose congestion, No Mouth pain, No Mouth swelling, No Throat pain, No Throat swelling, No Other Cardiovascular: No Chest Pain, No Palpitations, No Orthopnea, No Paroxysmal Noc. Dyspnea, No Edema, No Lt Headedness, No Other Respiratory: No Cough, No Dry, No Shortness of breath, No SOB with excertion, No Wheezing, No Hemoptysis, No Pleuritic Pain, No Sputum, No Other Gastrointestinal: No Nausea, No Vomiting, No Abdominal Pain, No Diarrhea, No Constipation, No Melena, No Hematochezia, No Other Genitourinary: No Dysuria, No Frequency, No Incontinence, No Hematuria, No Retention, No Other Musculoskeletal: No other, No neck pain, No shoulder pain, No arm pain, No back pain, No hand pain; leg pain; No foot pain Skin: No Rash, No Lesions, No Jaundice, No Bruising, No Other Objective Vitals Vital Signs Date Time Temp Pulse Resp B/P (MAP) Pulse Ox O2 Delivery O2 Flow Rate FiO2 07/06/24 10:00 76 12 118/78 (91) 94 07/06/24 10:00 97.5 97.5 07/06/24 08:48 Mask 6.0 07/06/24 08:00 21 Intake/Output Intake and Output 07/06/24 07:00 Intake Total 1000 ml Output Total 0 ml Balance 1000 ml Intake IV Total 1000 ml Output Urine Total 0 ml # Voids 2 Medications Current Medications Medications Dose Ordered Sig/Juan C Route Start Time Stop Time Status Last Admin Dose Admin Hydromorphone HCl 0.5 mg Q4HPRN PRN IV 07/05/24 18:00 Ondansetron HCl 4 mg Q4HPRN PRN IV 07/05/24 18:00 Sodium Chloride 1,000 ml @ 60 mls/hr [id number] IV 07/05/24 19:30 07/05/24 23:57 60 MLS/HR Lorazepam 0.5 mg Q6HP PRN PO 07/05/24 19:30 Al Hydrox/Mg Hydrox/Simethicone 30 ml Q6HP PRN PO 07/05/24 19:30 Docusate Sodium 100 mg BIDPRN PRN PO 07/05/24 19:30 Acetaminophen 650 mg Q6HP PRN PO 07/05/24 19:30 Hold Temazepam 15 mg QHSP PRN PO 07/05/24 19:30 Acetaminophen/ Hydrocodone Bitart 1 tab Q4HP PRN PO 07/05/24 19:30 Ondansetron HCl 4 mg Q4HP PRN IV 07/05/24 19:30 Hold Morphine Sulfate 2 mg Q4HPRN PRN IV 07/05/24 19:30 07/06/24 04:29 2 MG Lactated Ringer's 1,000 ml @ 100 mls/hr Q10H IV 07/06/24 09:00 07/06/24 12:09 100 MLS/HR Sodium Chloride 10 ml Q8HR IV 07/06/24 14:00 07/06/24 11:51 10 ML Acetaminophen/ Hydrocodone Bitart 1 tab Q4HP PRN PO 07/06/24 09:00 Apixaban 2.5 mg BID PO 07/07/24 10:00 08/11/24 09:59 Laboratory Results Laboratory Tests 07/06/24 05:30 Chemistry Test 07/05/24 14:26 07/06/24 05:30 Calcium Level 9.9 mg/dL (8.7-10.4) 9.2 mg/dL (8.7-10.4) Coagulation Test 07/05/24 14:26 07/06/24 05:30 Prothrombin Time 10.3 sec (9.3-11.8) 10.6 sec (9.3-11.8) Prothrombin Time INR 0.97 (0.9-1.15) 1.00 (0.9-1.15) Activated Partial Thromboplast Time 28.1 SEC (24.5-34.5) Urinalysis Test 07/06/24 04:00 Urine Color Light-yellow (Yellow) Urine Clarity Clear (Clear) Urine pH 5.5 (5.0-9.0) Urine Specific [place] 1.015 (1.001-1.035) Urine Protein Negative (Negative) Urine Ketones Trace (Negative) Urine Blood Negative /uL (Negative) Urine Nitrite 2+ (Negative) H Urine Bilirubin Negative (Negative) Urine Urobilinogen Normal mg/dL (Negative) Urine Leukocyte Esterase 2+ /uL (Negative) Urine RBC 1 /hpf (0 - 4) Urine WBC 26 /hpf (0 - 5) Urine Squamous Epithelial Cells None seen /hpf (<5) Urine Bacteria None seen /hpf (None Seen) Urine Glucose Normal mg/dL (Normal) Labs and/or images reviewed: Labs reviewed by me, Image(s) reviewed by me Assessment/Plan Assessment/Plan Acute subcapital femoral neck fracture status post pinning by Dr. Mo on 07-06-24, continue pain medication Mechanical fall Acute dehydration: IV fluids History of cancer Plan discussed with: Patient Date of Service: Jul 06, 2024 Billing Provider: FRANCE BURCIAGA MD Common Visit Codes: [id number] INP/OBS CARE(HIGH) FRANCE BURCIAGA MD Jul 06, 2024 12:50
[2024-07-07 01:00] VITALS: BP 116/68; PULSE 68; RESP 20; TEMP 97.8; O2SAT 92
[2024-07-07 04:47] VITALS: BP 120/69; PULSE 75; RESP 20; TEMP 97.7; O2SAT 95
[2024-07-07 05:00] VITALS: BP 120/69; PULSE 75; RESP 20; TEMP 97.7; O2SAT 95
[2024-07-07] MEDS: DOCUSATE SOD 100 MG CAP PO PRN (06:39)
[2024-07-07 06:57] LABS: Basophils # (auto) 0 10 ^3/uL (0-0.2); Basophils % (auto) 0.3 % (0.0-2.0); Eosinophils # (auto) 0.2 10 ^3/uL (0-0.8); Eosinophils % (auto) 1.7 % (0.0-7.0); Hematocrit 36.4 % (36.0-46.0); Hemoglobin 12.3 g/dL (12.2-16.2); Lymphocytes # (auto) 0.8 10 ^3/uL (0.4-5.4); Lymphocytes % (auto) 8.2 % (10.0-50.0); Mean Corpuscular Hemoglobin 30.7 pg (28.0-32.0); Mean Corpuscular Hgb Conc. 33.8 g/dL (32.0-36.0); Mean Corpuscular Volume 90.8 fL (80.0-100.0); Monocytes # (auto) 0.6 10 ^3/uL (0-1.3); Neutrophils # (auto) 8.1 10 ^3/uL (1.6-8.6); Neutrophils % (auto) 83.8 % (37.0-80.0); Platelet Count (auto) 204 10^3/uL (140-450); Red Blood Cells 4.01 10^6/uL (4.0-5.20); Red Cell Distribution Width 13.5 % (11.8-14.3); White Blood Cell 9.7 10^3/uL (4.4-10.8)
[2024-07-07 07:09] LABS: Potassium 4.4 mmol/L (3.5-5.1); Sodium 140 mmol/L (136-145)
[2024-07-07 07:10] LABS: Anion Gap 8 (5-15); Carbon Dioxide 22 mmol/L (20-31)
[2024-07-07 07:15] LABS: BUN/Creatinine Ratio 15.9 (10.0-20.0); Blood Urea Nitrogen 11 mg/dL (9-23); Glucose 95 mg/dL (74-106)
[2024-07-07 07:23] LABS: Chloride 110 mmol/L (98-107)
[2024-07-07 08:00] VITALS: RESP 18; O2SAT 96
[2024-07-07 09:00] VITALS: BP 134/66; PULSE 63; RESP 16; TEMP 98.1; O2SAT 96
--- NOTE | 2024-07-07 09:18 | DVHPN2 ---
Progress Note - Dictate Date Seen: Jul 06, 2024 Medical Necessity Reason Pt with a Central, PICC or Fol: Yes Subjective PT WITH MECHANICAL FALL WITH RIGHT HIP FRACTURE NOW WITH VALGUS IMPACT RIGHT FEMORAL NECK FRACTURE S/P RIGHT HIP PINNING vital signs Vital Sign Date Time Temp Pulse Resp B/P (MAP) Pulse Ox O2 Delivery O2 Flow Rate FiO2 07/07/24 09:00 98.1 63 16 134/66 (88) 96 98.1 07/06/24 20:30 Room Air* 0 21 Total Intake and Output 07/06/24 07/06/24 07/07/24 15:00 23:00 07:00 Intake Total 600 ml 1200 ml Balance 600 ml 1200 ml medications Current Medications Medications Dose Ordered Sig/Juan C Route Start Time Stop Time Status Last Admin Dose Admin Hydromorphone HCl 0.5 mg Q4HPRN PRN IV 07/05/24 18:00 Ondansetron HCl 4 mg Q4HPRN PRN IV 07/05/24 18:00 Sodium Chloride 1,000 ml @ 60 mls/hr [id number] IV 07/05/24 19:30 07/05/24 23:57 60 MLS/HR Lorazepam 0.5 mg Q6HP PRN PO 07/05/24 19:30 Al Hydrox/Mg Hydrox/Simethicone 30 ml Q6HP PRN PO 07/05/24 19:30 Docusate Sodium 100 mg BIDPRN PRN PO 07/05/24 19:30 07/07/24 06:39 100 MG Acetaminophen 650 mg Q6HP PRN PO 07/05/24 19:30 Hold Temazepam 15 mg QHSP PRN PO 07/05/24 19:30 Acetaminophen/ Hydrocodone Bitart 1 tab Q4HP PRN PO 07/05/24 19:30 Ondansetron HCl 4 mg Q4HP PRN IV 07/05/24 19:30 Hold Morphine Sulfate 2 mg Q4HPRN PRN IV 07/05/24 19:30 07/06/24 21:35 2 MG Lactated Ringer's 1,000 ml @ 100 mls/hr Q10H IV 07/06/24 09:00 07/06/24 12:09 100 MLS/HR Sodium Chloride 10 ml Q8HR IV 07/06/24 14:00 07/07/24 04:49 10 ML Acetaminophen/ Hydrocodone Bitart 1 tab Q4HP PRN PO 07/06/24 09:00 Apixaban 2.5 mg BID PO 07/07/24 10:00 08/11/24 09:59 laboratory and microbiology Laboratory Tests 07/07/24 05:50 Test 07/07/24 05:50 Range/Units Serum Glucose 95 74-106 mg/dL Problem List MECHANICAL FALL WITH RIGHT HIP FRACTURE NOW WITH VALGUS IMPACT RIGHT FEMORAL NECK FRACTURE S/P RIGHT HIP PINNING Assessment/Plan DVT PROPHYLAXIS PT MONITOR CBC Plan discussed with: Patient MAO SAGASTUME MD Jul 07, 2024 09:18
--- NOTE | 2024-07-07 10:23 | DVHPN2 ---
Progress Note - Dictate Date Seen: Jul 07, 2024 Medical Necessity Reason Pt with a Central, PICC or Fol: No Subjective Pain well controlled. Walked to nurses station yesterday vital signs Vital Sign Date Time Temp Pulse Resp B/P (MAP) Pulse Ox O2 Delivery O2 Flow Rate FiO2 07/07/24 09:00 98.1 63 16 134/66 (88) 96 98.1 07/06/24 20:30 Room Air* 0 21 Total Intake and Output 07/06/24 07/06/24 07/07/24 15:00 23:00 07:00 Intake Total 600 ml 1200 ml Balance 600 ml 1200 ml medications Current Medications Medications Dose Ordered Sig/Juan C Route Start Time Stop Time Status Last Admin Dose Admin Hydromorphone HCl 0.5 mg Q4HPRN PRN IV 07/05/24 18:00 Ondansetron HCl 4 mg Q4HPRN PRN IV 07/05/24 18:00 Sodium Chloride 1,000 ml @ 60 mls/hr [id number] IV 07/05/24 19:30 07/05/24 23:57 60 MLS/HR Lorazepam 0.5 mg Q6HP PRN PO 07/05/24 19:30 Al Hydrox/Mg Hydrox/Simethicone 30 ml Q6HP PRN PO 07/05/24 19:30 Docusate Sodium 100 mg BIDPRN PRN PO 07/05/24 19:30 07/07/24 06:39 100 MG Acetaminophen 650 mg Q6HP PRN PO 07/05/24 19:30 Hold Temazepam 15 mg QHSP PRN PO 07/05/24 19:30 Acetaminophen/ Hydrocodone Bitart 1 tab Q4HP PRN PO 07/05/24 19:30 Ondansetron HCl 4 mg Q4HP PRN IV 07/05/24 19:30 Hold Morphine Sulfate 2 mg Q4HPRN PRN IV 07/05/24 19:30 07/06/24 21:35 2 MG Lactated Ringer's 1,000 ml @ 100 mls/hr Q10H IV 07/06/24 09:00 07/06/24 12:09 100 MLS/HR Sodium Chloride 10 ml Q8HR IV 07/06/24 14:00 07/07/24 04:49 10 ML Acetaminophen/ Hydrocodone Bitart 1 tab Q4HP PRN PO 07/06/24 09:00 Apixaban 2.5 mg BID PO 07/07/24 10:00 08/11/24 09:59 objective A&Ox4 dressing intact right thigh with small spot no calf or pedal edema distal nv intact laboratory and microbiology Laboratory Tests 07/07/24 05:50 Test 07/07/24 05:50 Range/Units Serum Glucose 95 74-106 mg/dL Assessment/Plan acute impacted right femoral neck fracture POD #1 s/p in situ hip pinning femoral neck right Plan: local wd care. Current dressing good for another 6 days then daily dry dressing WBAT with walker PT home FU vanna 10-14 days Eliquis for DVT prophylaxis Stable for discharge from [facility] Plan discussed with: Patient SHANNON ISAAC MD Jul 07, 2024 10:23
[2024-07-07] MEDS: APIXABAN 2.5 MG TAB PO SCH (10:59)
--- NOTE | 2024-07-07 12:50 | DVHDS2 ---
Discharge Summary Date of Admission Jul 05, 2024 at 19:20 Date of Discharge: Jul 07, 2024 Admitting Diagnosis HIP FRACTURE Wounds: SURGICAL WOUND Labs/Diagnostic Data: Laboratory Results Test 07/07/24 05:50 07/06/24 05:30 07/06/24 04:00 White Blood Count 9.7 10^3/uL (4.4-10.8) Red Blood Count 4.01 10^6/uL (4.0-5.20) Hemoglobin 12.3 g/dL (12.2-16.2) Hematocrit 36.4 % (36.0-46.0) Mean Corpuscular Volume 90.8 fL (80.0-100.0) Mean Corpuscular Hemoglobin 30.7 pg (28.0-32.0) Mean Corpuscular Hemoglobin Concent 33.8 g/dL (32.0-36.0) Red Cell Distribution Width 13.5 % (11.8-14.3) Platelet Count 204 10^3/uL (140-450) Mean Platelet Volume 8.0 fL (6.9-10.8) Neutrophils (%) (Auto) 83.8 % (37.0-80.0) Lymphocytes (%) (Auto) 8.2 % (10.0-50.0) Monocytes (%) (Auto) 6.0 % (0.0-12.0) Eosinophils (%) (Auto) 1.7 % (0.0-7.0) Basophils (%) (Auto) 0.3 % (0.0-2.0) Neutrophils # (Auto) 8.1 10 ^3/uL (1.6-8.6) Lymphocytes # (Auto) 0.8 10 ^3/uL (0.4-5.4) Monocytes # (Auto) 0.6 10 ^3/uL (0-1.3) Eosinophils # (Auto) 0.2 10 ^3/uL (0-0.8) Basophils # (Auto) 0 10 ^3/uL (0-0.2) Nucleated Red Blood Cells 0.0 % Sodium Level 140 mmol/L (136-145) Potassium Level 4.4 mmol/L (3.5-5.1) Chloride Level 110 mmol/L (98-107) Carbon Dioxide Level 22 mmol/L (20-31) Anion Gap 8 (5-15) Blood Urea Nitrogen 11 mg/dL (9-23) Creatinine 0.69 mg/dL (0.550-1.02) Glomerular Filtration Rate Calc 94 mL/min (>90) BUN/Creatinine Ratio 15.9 (10.0-20.0) Serum Glucose 95 mg/dL (74-106) Calcium Level 9.0 mg/dL (8.7-10.4) Prothrombin Time 10.6 sec (9.3-11.8) Prothrombin Time INR 1.00 (0.9-1.15) Activated Partial Thromboplast Time 28.1 SEC (24.5-34.5) Urine Color Light-yellow (Yellow) Urine Clarity Clear (Clear) Urine pH 5.5 (5.0-9.0) Urine Specific [place] 1.015 (1.001-1.035) Urine Protein Negative (Negative) Urine Ketones Trace (Negative) Urine Blood Negative /uL (Negative) Urine Nitrite 2+ (Negative) Urine Bilirubin Negative (Negative) Urine Urobilinogen Normal mg/dL (Negative) Urine Leukocyte Esterase 2+ /uL (Negative) Urine RBC 1 /hpf (0 - 4) Urine WBC 26 /hpf (0 - 5) Urine Squamous Epithelial Cells None seen /hpf (<5) Urine Bacteria None seen /hpf (None Seen) Urine Glucose Normal mg/dL (Normal) Other Laboratory Tests 07/07/24 05:50 Brief Hx & Hospital Course: MECHANICAL FALL WITH RIGHT HIP FRACTURE NOW WITH VALGUS IMPACT RIGHT FEMORAL NECK FRACTURE S/P RIGHT HIP PINNING Assessment/Plan DVT PROPHYLAXIS PT MONITOR CBC AMBULATING AMBULATING DC HOME WITH HOME HEALTH Consults/Reason for consult ORTHO CONSULT Operations or Procedures HIP PINNING Condition at Discharge: Stable Final Diagnosis/Problems List Same Discharge Disposition: Home Discharge Instruct/Medications Diet: Cardiac 2g Na,low cholest Activity: Light activity Follow Up/Referral: 2 WEEKS Medications: CONT HOME MEDS Discharge Statement: "Patient was advised to return to the ER or call 911 if any headaches, dizziness, shortness of breath, chest pain, abdominal pain, bleeding, fevers, or worsening of medical condition. Patient was counseled about treatment plan, medications, possible side effects, patientverbalized understanding. All questions were answered to the best of my ability. This discharge took greater then 30 minutes in planning, reviewing documentation, counseling the patient, and discussing with other team members." ASSESSMENT ASSESSMENT Assessment Same MAO SAGASTUME MD Jul 07, 2024 12:50
[2024-07-07 12:53] VITALS: BP 125/52; PULSE 66; RESP 17; TEMP 97.9; O2SAT 97
== END 2024-07-07 15:00 | disposition home or self-care (01) | DRG 482 ==
LOC: EEVIPCON 14:05 → EDBD 14:05 → ER 14:05 → OVERFLOW 19:20 → EAST 22:56
PROVIDERS: ADMIT Hospitalist; ATTEND Internal Medicine Cardiovascular Disease
PROC: 0QS634Z Reposition Right Upper Femur with Internal Fixation Device, Percutaneous Approach (ICD-10-PCS; principal; 2024-07-06 07:33)
DX: S72.011A Unspecified intracapsular fracture of right femur, initial encounter for closed fracture (principal); E86.0 Dehydration; W01.0XXA Fall on same level from slipping, tripping and stumbling without subsequent striking against object, initial encounter; Y93.01 Activity, walking, marching and hiking; Z98.51 Tubal ligation status; Z90.710 Acquired absence of both cervix and uterus; Z88.1 Allergy status to other antibiotic agents; Z98.1 Arthrodesis status; Z82.49 Family history of ischemic heart disease and other diseases of the circulatory system; Z83.3 Family history of diabetes mellitus; Y99.8 Other external cause status; Y92.009 Unspecified place in unspecified non-institutional (private) residence as the place of occurrence of the external cause
CPT/HCPCS: 36415; 71045; 72100; 72192; 73501; 73502; 76000; 80048; 81001; 85025; 85610; 85730; 86850; 86900; 86901; 93005; 97110; 97116; 97163; 97530; 99291; G0378; J1100; J1885; J2003; J2250; J2405; J2704